=== PATIENT | female | born 1960 | race Caucasian/White ===

== ENCOUNTER 2017-04-30 15:18 | Emergency (ER) | payer OTHER, MEDICARE ==
[2017-04-30] MEDS ORDERED: HYDROCODONE/ACETAMINOPHEN 5-325 MG TABLET PO ONE (17:19)
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
[2017-04-30 18:22] VITALS: BP 146/82
--- NOTE | 2017-04-30 18:57 | EKG REPORT ---
SEVERITY:- NORMAL ECG - SINUS RHYTHM : Confirmed by: Rober Chawla MD 30-Apr-2017 18:56:47
== END 2017-04-30 18:25 | disposition home or self-care (01) ==
LOC: ER 15:18
DX: S20.212A Contusion of left front wall of thorax, initial encounter (principal); S20.02XA Contusion of left breast, initial encounter; R07.9 Chest pain, unspecified; M25.539 Pain in unspecified wrist; F17.200 Nicotine dependence, unspecified, uncomplicated; I10 Essential (primary) hypertension; V49.50XA Passenger injured in collision with unspecified motor vehicles in traffic accident, initial encounter
CPT/HCPCS: 71046; 93005; 93010; 99283

== ENCOUNTER 2018-01-08 08:10 | Day surgery (SDC) | payer MEDICARE, OTHER ==
--- NOTE | 2018-01-01 10:48 | RADIOLOGY REPORT (SQ) ---
EXAM DESCRIPTION: CHEST PA/LATERAL COMPLETED DATE/TIME: 01/01/2018 10:40 am REASON FOR STUDY: PRE-OP COMPARISON: 04/30/2017 EXAM PARAMETERS: NUMBER OF VIEWS: two views TECHNIQUE: Digital Frontal and Lateral radiographic views of the chest acquired. RADIATION DOSE: NA LIMITATIONS: none FINDINGS: LUNGS AND PLEURA: No opacities, masses or pneumothorax. No pleural effusion. MEDIASTINUM AND HILAR STRUCTURES: No masses or contour abnormalities. HEART AND VASCULAR STRUCTURES: Heart normal size. No evidence for failure. BONES: No acute findings. HARDWARE: None in the chest. OTHER: No other significant finding. IMPRESSION: NO SIGNIFICANT RADIOGRAPHIC FINDING IN THE CHEST. TECHNICAL DOCUMENTATION: JOB ID: [id number] [employer]- All Rights Reserved Reading location - IP/workstation name: [email or web address]
[2018-01-01 11:52] LABS: HEMOGLOBIN 15.2 g/dL (12.0-15.5); MEAN CORPUSCULAR HGB CONC 35.4 g/dL (32.0-36.0); MEAN CORPUSCULAR VOLUME 93 fl (80-97); PLATELET COUNT 218 10^3/uL (150-450); RED BLOOD COUNT 4.62 10^6/uL (3.72-5.28); WHITE BLOOD COUNT 10.3 10^3/uL (4.0-10.5)
[2018-01-01 12:02] LABS: APPEARANCE,URINE SLIGHTLY-CLOUDY; BILIRUBIN,URINE NEGATIVE (NEGATIVE); COLOR,URINE YELLOW; GLUCOSE, URINE NEGATIVE (NEGATIVE); KETONES,URINE NEGATIVE (NEGATIVE); LEUKOCYTE ESTERASE,URINE NEGATIVE (NEGATIVE); NITRITE,URINE NEGATIVE (NEGATIVE); PROTEIN,URINE NEGATIVE (NEGATIVE); URINE SPECIFIC GRAVITY 1.014; UROBILINOGEN,URINE NEGATIVE mg/dL (<2.0)
[2018-01-01 12:20] LABS: ANION GAP 8 (5-19); BLOOD UREA NITROGEN 9 mg/dL (7-20); CALCIUM 9.5 mg/dL (8.4-10.2); CARBON DIOXIDE 30 mmol/L (22-30); CHLORIDE 106 mmol/L (98-107); GLUCOSE 77 mg/dL (75-110); POTASSIUM 4.4 mmol/L (3.6-5.0)
--- NOTE | 2018-01-01 13:31 | EKG REPORT ---
SEVERITY:- NORMAL ECG - SINUS RHYTHM : Confirmed by: Rober Chawla MD 01-Jan-2018 13:31:00
[~2018-01-08 08:10] MED LIST: BUPIVACAINE HCL 0.5 % INJ/PF 30 ML SDV ONE; CLINDAMYCIN 600 MG/D5W RTU 600 MG/50 ML RTUPB IV ONE; CLINDAMYCIN 600 MG/D5W RTU 600 MG/50 ML RTUPB IV PRN; LACTATED RINGERS 1000 ML IV PRN; LIDOCAINE 0.5% INJ-PF (5 MG/ML) 50 ML SDV SUBCUT PRN; LIDOCAINE 1% INJ-PF (10 MG/ML) 30 ML SDV ONE
[2018-01-08] MEDS ORDERED: SUCCINYLCHOLINE CHLORIDE INJ 200 MG/10 ML VIAL ONE (08:51)
[2018-01-08] MEDS ORDERED: KETOROLAC TROMETHAMINE 60 MG/2 ML SDV ONE (08:56)
[2018-01-08] MEDS ORDERED: FENTANYL CITRATE INJ/PF 100 MCG/2 ML AMPUL ONE (08:57)
[2018-01-08] MEDS ORDERED: DEXAMETHASONE SOD PHOSPHATE INJ 4 MG/1 ML VIAL ONE (08:57)
[2018-01-08] MEDS ORDERED: ACETAMINOPHEN 1,000 MG/100 ML RTUPB IV ONE (08:57)
[2018-01-08] MEDS ORDERED: MIDAZOLAM 2 MG/2 ML INJ ONE ×2 (08:57→09:25)
[2018-01-08] MEDS ORDERED: ONDANSETRON HCL INJ/PF 4 MG/2 ML SDV ONE (08:57)
[2018-01-08] MEDS ORDERED: PROPOFOL INJ 200 MG/20 ML VIAL IV ONE (08:57)
[2018-01-08] MEDS ORDERED: PROMETHAZINE HCL INJ 25 MG/1 ML VIAL IV PRN ×2 (11:37)
[2018-01-08] MEDS ORDERED: ONDANSETRON HCL INJ/PF 4 MG/2 ML SDV IV PRN ×2 (11:37→13:53)
[2018-01-08] MEDS ORDERED: FENTANYL CITRATE INJ/PF 100 MCG/2 ML AMPUL IV PRN ×3 (11:37)
[2018-01-08] MEDS ORDERED: MEPERIDINE HCL/PF INJ 25 MG/1 ML DISP.SYRIN IV PRN (11:37)
[2018-01-08] MEDS ORDERED: MORPHINE SULFATE 10 MG/ML INJ IV PRN ×2 (11:37→13:53)
[2018-01-08] MEDS ORDERED: DIPHENHYDRAMINE HCL 50 MG/ML VIAL IV PRN (11:37)
[2018-01-08] MEDS ORDERED: OXYCODONE-ACETAMINOPHEN 5-325 MG TABLET PO PRN (13:53)
[2018-01-08] MEDS: FENTANYL CITRATE INJ/PF 100 MCG/2 ML AMPUL ONE ×2 (13:55→14:05)
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
--- NOTE | 2018-01-08 13:56 | Discharge Summary ---
Discharge Summary (SDC) - Discharge Final Diagnosis: Right wrist ulnar impingement Date of Surgery: 01/08/18 Discharge Date: 01/08/18 Condition: Good Treatment or Instructions: Schedule Follow Up w/ Dr. Ta Godoy @ [facility] for Surgery to be seen in 10-14 days or as scheduled [place]: [place]: [place]: Ice and elevate Keep splint clean/dry/intact. If your fingers become numb please unwrap the Toni wrap but leave the splint in place, if the sensation does not return within 30 minutes please return to the emergency department. May begin finger range of motion attempting to make full fist. Please be aware that many medications contain acetaminophen, do not exceed a total of 1000 mg of acetaminophen every 6 hours. If ibuprofen and acetaminophen are not sufficient for your pain you may take the Percocet/[place]. Please be aware that the Percocet/[place] does contain Tylenol. Stool softener of choice when on pain medication. Prescriptions: Ketorolac Tromethamine [Toradol 10 mg Tablet] 10 mg PO Q8HP PRN #12 tablet PRN Reason: Oxycodone HCl/Acetaminophen [Percocet 5-325 mg Tablet] 1 tab PO Q6 #25 tab Referrals: AGGIE VANCE MD [Primary Care Provider] - Discharge Diet: As Tolerated Respiratory Treatments at Home: Deep Breathing/Coughing Discharge Activity: No Lifting Over 10 Pounds, No Lifting/Push/Pulling Report the Following to Your Physician Immediately: Fever over 101 Degrees, Unusual Bleeding, Redness, Swelling, Warmth, Increased Soreness
--- NOTE | 2018-01-08 14:07 | RADIOLOGY REPORT (SQ) ---
EXAM DESCRIPTION: WRIST RIGHT 2 VIEWS COMPLETED DATE/TIME: 01/08/2018 1:31 pm REASON FOR STUDY: RT WRIST ARTHROSCPY, W/ DEBRIDEMENT, UNLAR SHORTENING OSTEOTOMY M25.831 OTHER SPE CIFIED JOINT DISORDERS, RIGHT WRIST Z79.01 ALF (CURRENT) USE OF ANTICOAGULANTS COMPARISON: No recent comparisons. Previous wrist films from 2016. FLUOROSCOPY TIME: Fluoro time 41 seconds. 8 images saved to PACS. TECHNIQUE: Intra-operative images acquired during surgical procedure to evaluate progress. NUMBER OF IMAGES: 8 LIMITATIONS: None. FINDINGS: Images of the right forearm are obtained and show instrumentation in place along the dista l radius and ulna. History of distal radial fracture. Reported ulnar osteotomy currently. Please c orrelate with operative note. IMPRESSION: IMAGE(S) OBTAINED DURING PROCEDURE. COMMENT: Quality ID [id number]: Final reports for procedures using fluoroscopy that document radiation exp osure indices, or exposure time and number of fluorographic images (if radiation exposure indices are not available) Please consult full operative report of the attending physician for description of the procedure. TECHNICAL DOCUMENTATION: JOB ID: [id number] [employer]- All Rights Reserved Reading location - IP/workstation name: [email or web address]
[2018-01-08] MEDS ORDERED: OXYCODONE-ACETAMINOPHEN 5-325 MG TABLET ONE (14:30)
[2018-01-08 15:43] VITALS: BP 152/90
== END 2018-01-08 15:40 | disposition home or self-care (01) ==
LOC: OROUT 08:10
PROVIDERS: ATTEND Orthopaedic Surgery
DX: M25.831 Other specified joint disorders, right wrist (principal); S63.591A Other specified sprain of right wrist, initial encounter; V89.2XXA Person injured in unspecified motor-vehicle accident, traffic, initial encounter; M19.031 Primary osteoarthritis, right wrist; F17.210 Nicotine dependence, cigarettes, uncomplicated; I10 Essential (primary) hypertension; Z79.899 Other long term (current) drug therapy; Z79.1 Long term (current) use of non-steroidal anti-inflammatories (NSAID); Z88.0 Allergy status to penicillin; Z88.2 Allergy status to sulfonamides; Z87.81 Personal history of (healed) traumatic fracture
CPT/HCPCS: 25390; 29846; 93005; 36415; 85027; 81025; 80048; 81001; 71046; 73100; 93010; C1713 ×3; C1769; J2250; J3490; J1100; J1885; J3010; A9270 ×2; J0330; J2405; J2704; J0131; 01830

== ENCOUNTER → 2018-05-29 | Outpatient (CLI) | payer MEDICARE ==
--- NOTE | 2018-05-29 11:44 | WOMENS IMAGING REPORT ---
EXAM DESCRIPTION: BONE DENSITY HIP/SPINE COMPLETED DATE/TIME: 05/29/2018 11:24 am REASON FOR STUDY: Z78.0 ASYMPTOMATIC MENOPAUSAL STATE Z78.0 ASYMPTOMATIC MENOPAUSAL STATE COMPARISON: None. TECHNIQUE: Dual-Energy X-ray Absorptiometry (DEXA) of the AP Spine and Hip. LIMITATIONS: None. FINDINGS: LUMBAR SPINE: The bone mineral density (BMD) measured from L1-L4 in the AP projection correlates with a T-score of -2.3, which is osteopenic as defined by the World Health Organization. HIP: The bone mineral density (BMD) measured in the left femoral neck at the hip correlates with a T-score of -2.1, which is osteopenic as defined by the World Health Organization. IMPRESSION: 1. LUMBAR SPINE: Osteopenic 2. HIP: Osteopenic COMMENT: The World Health Organization defines low BMD as follows: T-score: Normal: Greater than -1.0 Osteopenia: Between -1.0 and -2.5 Osteoporosis: Less than -2.5 without fractures Established osteoporosis: Less than -2.5 with fractures In general, you may wish to consider: Diagnosis Treatment Follow-up DEXA Normal BMD Prevention 2-3 years Osteopenia Prevention/Therapy 1-2 years Osteoporosis Therapy Yearly TECHNICAL DOCUMENTATION: JOB ID: [id number] [employer]- All Rights Reserved Reading location - IP/workstation name: [email or web address]
== END ==
LOC: WI 10:26
PROVIDERS: ATTEND Family Medicine
DX: M85.88 Other specified disorders of bone density and structure, other site (principal); Z78.0 Asymptomatic menopausal state
CPT/HCPCS: 77080

== ENCOUNTER → 2018-07-04 | Outpatient (CLI) | payer MEDICARE ==
--- NOTE | 2018-07-04 15:31 | WOMENS IMAGING REPORT ---
EXAM DESCRIPTION: BILAT SCREENING MAMMO W/CAD COMPLETED DATE/TIME: 07/04/2018 11:42 am REASON FOR STUDY: Z12.31 ROUTINE BILATERAL SCREENING F17.200 NICOTINE DEPENDENCE, UNSPECIFIED, UNCO MPLICATED Z12.31 ENCNTR SCREEN MAMMOGRAM FOR MALIGNANT NEOPLASM OF MEENU COMPARISON: 2013 EXAM PARAMETERS: Standard craniocaudal and mediolateral oblique views of each breast recorded using digital acquisition. Read with the assistance of CAD. .[facility] - [employer] Engine Room Operator Version 9.2 LIMITATIONS: None. FINDINGS: No suspicious masses, suspicious calcifications or architectural distortion. No areas of s uspicion. IMPRESSION: ASSESSMENT: Negative MAMMOGRAM. BIRADS 1 BREAST DENSITY: d. The breasts are extremely dense, which lowers the sensitivity of mammography. BIRAD: 1 NEGATIVE RECOMMENDATION: ROUTINE SCREENING Please consider bilateral screening tomosynthesis in June 2019 given extremely dense fibroglandular ti ssue bilaterally COMMENT: The patient has been notified of the results by letter per MQSA requirements. Additional no tification policies are in place for contacting patient with suspicious or incomplete findings. Quality ID #[id number]: The [employer] recommends an annual screening mammogram for women aged 40 years or over. This facility utilizes a reminder system to ensure that all patients receive reminder letters, and/or direct phone calls for appointments. This includes reminders for routine scr eening mammograms, diagnostic mammograms, or other Breast Imaging Interventions when appropriate. Th is patient will be placed in the appropriate reminder system. TECHNICAL DOCUMENTATION: FINDING NUMBER: (1) ASSESSMENT: (1) JOB ID: [id number] [employer]- All Rights Reserved Reading location - IP/workstation name: [email or web address]
== END ==
LOC: RAD 08:54
PROVIDERS: ATTEND Family Medicine
DX: Z12.31 Encounter for screening mammogram for malignant neoplasm of breast (principal); Z87.891 Personal history of nicotine dependence
CPT/HCPCS: 77067

== ENCOUNTER 2018-07-19 09:27 | Day surgery (SDC) | payer MEDICARE ==
[~2018-07-19 09:27] MED LIST changes: -BUPIVACAINE HCL 0.5 % INJ/PF 30 ML SDV ONE; -CLINDAMYCIN 600 MG/D5W RTU 600 MG/50 ML RTUPB IV ONE; -CLINDAMYCIN 600 MG/D5W RTU 600 MG/50 ML RTUPB IV PRN; -LACTATED RINGERS 1000 ML IV PRN; -LIDOCAINE 0.5% INJ-PF (5 MG/ML) 50 ML SDV SUBCUT PRN; -LIDOCAINE 1% INJ-PF (10 MG/ML) 30 ML SDV ONE; +PROPOFOL INJ 200 MG/20 ML VIAL IV ONE
[2018-07-19 11:07] VITALS: BP 110/60
--- NOTE | 2018-07-19 11:20 | Operative Report ---
Operative Report DATE OF SURGERY: 07/19/18 Operative Report: The risks, benefits and alternatives of the procedure including the risk of bleeding, perforation requiring surgery have been explained to the patient in detail and informed consent has been obtained. Patient is taken back to the endoscopy suite and placed in the left, lateral decubital position. Timeout was called. Propofol medication is administered. Rectal examination is done which did not reveal any masses, tears or fissures. An Olympus videoscope was introduced into the patient's rectum. The scope was then carefully advanced all the way to the cecum. The cecum was identified by the usual anatomical landmarks including the ileocecal valve as well as the appendiceal office. Photodocumentation is obtained. The scope was then sequentially pulled back via the various segments of the colon including the ascending colon, hepatic flexure, transverse colon, splenic flexure, descending colon and finally into the rectosigmoid portions of the colon. Retroflexion maneuvers performed. PREOPERATIVE DIAGNOSIS: Colorectal cancer screening. POSTOPERATIVE DIAGNOSIS: Normal screening colonoscopy OPERATION: Diagnostic colonoscopy SURGEON: RAAD BOLES ANESTHESIA: LMAC TISSUE REMOVED OR ALTERED: None. COMPLICATIONS: None. ESTIMATED BLOOD LOSS: As noted above. INTRAOPERATIVE FINDINGS: As noted above. PROCEDURE: Patient tolerated the procedure well. No immediate postprocedure complications are noted. Patient is discharged in good condition. Discharge date 07/19/2018. Discharge diet: Regular. Discharge activity: Regular. 2 to 3-week follow-up to discuss findings. Patient is instructed to call the office or proceed to the emergency room should there be any further problems or questions. 10-year surveillance colonoscopy.
== END 2018-07-19 11:01 | disposition home or self-care (01) ==
LOC: END 09:27
PROVIDERS: ATTEND Internal Medicine Gastroenterology
DX: Z12.11 Encounter for screening for malignant neoplasm of colon (principal); I10 Essential (primary) hypertension; F17.210 Nicotine dependence, cigarettes, uncomplicated; E78.5 Hyperlipidemia, unspecified; Z79.899 Other long term (current) drug therapy; Z88.0 Allergy status to penicillin; Z88.2 Allergy status to sulfonamides
CPT/HCPCS: 00812; G0105; J2704; 45378; 812

== ENCOUNTER 2018-08-20 08:22 | Day surgery (SDC) | payer OTHER, MEDICARE ==
[2018-08-14 11:41] LABS: APPEARANCE,URINE CLEAR; BILIRUBIN,URINE NEGATIVE (NEGATIVE); COLOR,URINE STRAW; GLUCOSE, URINE NEGATIVE (NEGATIVE); KETONES,URINE NEGATIVE (NEGATIVE); LEUKOCYTE ESTERASE,URINE NEGATIVE (NEGATIVE); NITRITE,URINE NEGATIVE (NEGATIVE); PROTEIN,URINE NEGATIVE (NEGATIVE); URINE SPECIFIC GRAVITY 1.004; UROBILINOGEN,URINE NEGATIVE mg/dL (<2.0)
[2018-08-14 12:29] LABS: INTERNATIONAL RATION (INR) 0.93; PROTHROMBIN TIME 12.5 SEC (11.4-15.4)
[2018-08-14 12:30] LABS: ABSOLUTE BASOPHILS # (AUTO) 0.1 10^3/uL (0.0-0.2); ABSOLUTE EOSINOPHILS # (AUTO) 0.4 10^3/uL (0.0-0.6); ABSOLUTE LYMPHOCYTES (AUTO) 2.3 10^3/uL (0.5-4.7); ABSOLUTE MONOCYTES (AUTO) 0.9 10^3/uL (0.1-1.4); ABSOLUTE NEUT (AUTO) 7.5 10^3/uL (1.7-8.2); BASOPHILS % (AUTO) 0.5 % (0-2); EOSINOPHILS % (AUTO) 3.5 % (0-6); HEMATOCRIT 42.9 % (36.0-47.0); HEMOGLOBIN 14.6 g/dL (12.0-15.5); MEAN CORPUSCULAR HEMOGLOBIN 30.2 pg (27.0-33.4); MEAN CORPUSCULAR HGB CONC 34.1 g/dL (32.0-36.0); MEAN CORPUSCULAR VOLUME 89 fl (80-97); PARTIAL THROMBOPLASTIN TIME 28.2 SEC (23.5-35.8); PLATELET COUNT 238 10^3/uL (150-450); RED BLOOD COUNT 4.83 10^6/uL (3.72-5.28); TOTAL CELLS COUNTED % (AUTO) 100 %; WHITE BLOOD COUNT 11.2 10^3/uL (4.0-10.5)
--- NOTE | 2018-08-14 12:50 | RADIOLOGY REPORT (SQ) ---
EXAM DESCRIPTION: CHEST PA/LATERAL COMPLETED DATE/TIME: 08/14/2018 11:46 am REASON FOR STUDY: PRE-OP COMPARISON: 01/01/2018 EXAM PARAMETERS: NUMBER OF VIEWS: two views TECHNIQUE: Digital Frontal and Lateral radiographic views of the chest acquired. RADIATION DOSE: NA LIMITATIONS: none FINDINGS: LUNGS AND PLEURA: No opacities, masses or pneumothorax. No pleural effusion. MEDIASTINUM AND HILAR STRUCTURES: No masses or contour abnormalities. HEART AND VASCULAR STRUCTURES: Heart normal size. No evidence for failure. BONES: No acute findings. HARDWARE: Partially evaluated cervical fusion hardware. Prior cholecystectomy. OTHER: Scattered gas fluid levels throughout the visualized abdomen. No visualized dilated loops. IMPRESSION: No evidence of acute intrathoracic process. TECHNICAL DOCUMENTATION: JOB ID: [id number] [employer]- All Rights Reserved Reading location - IP/workstation name: [email or web address]
[2018-08-14 12:53] LABS: ANION GAP 9 (5-19); BLOOD UREA NITROGEN 9 mg/dL (7-20); CALCIUM 9.7 mg/dL (8.4-10.2); CARBON DIOXIDE 29 mmol/L (22-30); CHLORIDE 100 mmol/L (98-107); GLUCOSE 70 mg/dL (75-110); SODIUM 137.8 mmol/L (137-145)
[2018-08-14 13:07] LABS: ERYTHROCYTE SEDIMENTATION RATE 9 mm/hr (0-30)
--- NOTE | 2018-08-14 23:59 | EKG REPORT ---
SEVERITY:- NORMAL ECG - SINUS RHYTHM : Confirmed by: Lory Flanagan MD 14-Aug-2018 23:58:20
[2018-08-17 17:05] LABS: COTININE 156.1 ng/mL (.); NICOTINE 13.4 ng/mL (.)
[~2018-08-20 08:22] MED LIST changes: +CLINDAMYCIN 600 MG/D5W RTU 600 MG/50 ML RTUPB IV PRN; +DEXAMETHASONE SOD PHOSPHATE INJ 4 MG/1 ML VIAL ONE; +FENTANYL CITRATE INJ/PF 100 MCG/2 ML AMPUL ONE; +LACTATED RINGERS 1000 ML IV PRN; +LIDOCAINE 0.5% INJ-PF (5 MG/ML) 50 ML SDV SUBCUT PRN; +MIDAZOLAM 2 MG/2 ML INJ ONE; +ONDANSETRON HCL INJ/PF 4 MG/2 ML SDV ONE
[2018-08-20] MEDS ORDERED: CLINDAMYCIN 600 MG/D5W RTU 600 MG/50 ML RTUPB IV ONE (08:29)
[2018-08-20] MEDS ORDERED: BUPIVACAINE HCL 0.5 % INJ/PF 30 ML SDV ONE (08:42)
[2018-08-20] MEDS ORDERED: ALBUTEROL SULFATE 0.083% NEB 2.5 MG/3 ML AMPUL NEB ONE (09:00)
[2018-08-20] MEDS ORDERED: ONDANSETRON HCL INJ/PF 4 MG/2 ML SDV IV PRN (10:17)
[2018-08-20] MEDS ORDERED: FENTANYL CITRATE INJ/PF 100 MCG/2 ML AMPUL IV PRN ×3 (10:17)
[2018-08-20] MEDS ORDERED: PROMETHAZINE HCL INJ 25 MG/1 ML VIAL IV PRN ×2 (10:17)
[2018-08-20] MEDS ORDERED: MEPERIDINE HCL/PF INJ 25 MG/1 ML DISP.SYRIN IV PRN (10:17)
[2018-08-20] MEDS ORDERED: DIPHENHYDRAMINE HCL 50 MG/ML VIAL IV PRN (10:17)
[2018-08-20] MEDS ORDERED: MORPHINE SULFATE 10 MG/ML INJ IV PRN ×2 (10:17→12:25)
[2018-08-20] MEDS ORDERED: OXYCODONE-ACETAMINOPHEN 5-325 MG TABLET PO PRN (12:25)
--- NOTE | 2018-08-20 12:26 | Discharge Summary ---
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 Ta Godoy @ [facility] for Surgery to be seen in 10-14 days or as scheduled [place]: [place]: [place]: Ice and elevate Keep splint clean/dry/intact, do not remove. If your fingers become numb please unwrap the Toni wrap but leave the splint in place, if the sensation does not return within 30 minutes please return to the emergency department. May begin finger range of motion attempting to make full fist. No smoking or nicotine ORAL NARCOTIC MEDICATION: You have been given a prescription for pain control. This medication is a narcotic. It's best taken with food, as nausea can result if taken on an empty stomach. Don't operate machinery or drive within six hours of taking this medication. Do not combine this medicine with alcohol, or with any medication which can cause sedation (such as cold tablets or sleeping pills) unless you get permission from the physician. Narcotics tend to cause constipation. If possible, drink plenty of fluids and eat a diet high in fiber and fruits. Please be aware that prescription narcotics also have the potential for abuse. People become addicted to these medications because of the general sense of wellbeing that they induce. This feeling along with a significant reduction in tension, anxiety, and aggression provides a stimulating seductive quality to these drugs. Once your pain is under control, we encourage you to discard your unused narcotics. Prescriptions: Oxycodone HCl/Acetaminophen [Percocet 5-325 mg Tablet] 1 tab PO Q6 PRN #25 tab PRN Reason: Referrals: JUDY CINTRON MD [Primary Care Provider] - Respiratory Treatments at Home: Deep Breathing/Coughing Discharge Activity: No Lifting Over 10 Pounds, No Lifting/Push/Pulling Report the Following to Your Physician Immediately: Fever over 101 Degrees, Unusual Bleeding, Redness, Swelling, Warmth, Increased Soreness
--- NOTE | 2018-08-20 12:31 | Operative Report ---
Operative Report DATE OF SURGERY: 08/20/18 PREOPERATIVE DIAGNOSIS: Right wrist ulnar shortening nonunion POSTOPERATIVE DIAGNOSIS: Same OPERATION: Takedown nonunion right ulnar shaft with placement of olecranon autograft revision ulnar shortening SURGEON: JONATHAN HEDRICK ANESTHESIA: GA COMPLICATIONS: None ESTIMATED BLOOD LOSS: Minimal PROCEDURE: Indication for above procedure: 57-year-old female who underwent ulnar shortening osteotomy patient did well postoperatively however radiographically continue to demonstrate evidence of persistent nonunion of the osteotomy site. After further discussion was found patient continued NSAIDs and smoking which increased her risk of nonunion. At that point once patient adequately quit smoking and metabolic work-up was performed decision was made to proceed with revision ulnar shortening osteotomy with takedown of nonunion. Risk and benefits of the surgical procedure were explained to the patient patient verbalized understanding consented for surgical procedure. Procedure In Detail: Patient was seen and evaluated in the preoperative holding area. The RIGHT upper extremity was initialized and marked. Patient received 2g of Ancef IV for bacterial prophylaxis. Patient was taken back to the operative room where transferred to the operative table and placed under general anesthesia. Once they were adequately anesthetized a nonsterile tourniquet was placed on the upper extremity. A surgical team debriefing was performed ensuring all instrumentation was available, the surgical procedure was discussed with possible concerns reviewed. The upper extremity was prepped with chlorhexidine and alcohol and draped in a sterile fashion. A timeout was done identifying correct patient, procedure and extremity everyone in attendance agree with this and verbalized no concerns. The extremity was exsanguinated the tourniquet was inflated to 250 mmHg. Previous skin incision was utilized and extended proximally and distally. Blunt dissection was performed. Dorsal ulnar sensory nerve was identified distally. Interval between the FCU and ECU was utilized. Previous plate was identified there was significant instability at the previous osteotomy site. The plate was successfully removed. Any nonviable tissue was excised including bone at the osteotomy site and proximally where the screws were cutting out until normal- appearing bone was identified. Once adequately debrided the canal was debrided with a curette proximally and distally. Given the amount of defect decision was made to proceed with harvesting autograft. Longitudinal skin incision was made over the olecranon. Under C-arm fluoroscopy the appropriate location of harvest was confirmed. The bone graft harvester was then placed and cancellus bone obtained. At the completion of the case this area was copiously irrigated with normal saline and filled with Vitoss synthetic bone graft. Skin was closed with subcuticular 4-0 Monocryl reinforced with Dermabond and Steri-Strips. At the nonunion site the Acumed forearm plate was fixated as distal as possible given the amount of bone loss and significant loosening evident. Bone was placed just ulnar to the ECU tendon and groove distally. Fixation was first obtained with bicortical fixation for an additional locking screw. The plate was then secured down to bone proximally and a locking plate was placed proximally and distally and reduction clamp from the Acumed osteotomy tray to compress the osteotomy. C-arm fluoroscopy was obtained there was significant shortening of the ulna but given patient's high risk of nonunion did not feel leaving a large gap filled with autograft would optimize patient's osteotomy healing and thus fixation was completed with 2 additional bicortical screws proximally providing interfragmentary compression 2 additional screws were placed proximally including a locking screw and additional bicortical screw. Fixation distally was secured in total with 2 locking screws and a bicortical screw as noted above. At completion patient had full pronation and supination there was compression of the osteotomy site under direct visualization. Wound was copiously irrigated with normal saline. The osteotomy site was then packed with autogenous olecranon autograft and additional detox was placed into the osteotomy site and screw holes distally. C-arm fluoroscopy was then obtained confirming appropriate reduction of the osteotomy with ulnar shortening as noted above. Deep soft tissues were closed with interrupted 3-0 Vicryl suture. Subcutaneous tissues were closed with interrupted 4-0 Monocryl suture. Skin was closed in running subcuticular 4-0 Monocryl reinforced with Dermabond and Steri-Strips. Patient was placed in a sugar tong splint with slight supination. Sponge counts, instrument counts, needle counts were correct. Patient was then awoken from anesthesia. Transferred from the operating room table to the operating room stretcher. There was no intraoperative complications patient tolerated procedure well stable to PACU. Postop plan: Patient follow-up the office in 2 weeks at which point we will proceed with placement of long-arm cast until radiographic union is noted. Patient will continue bone stimulator and calcium supplementation.
[2018-08-20] MEDS ORDERED: KETOROLAC TROMETHAMINE INJ/PF 30 MG/1 ML SDV ONE (12:41)
[2018-08-20] MEDS ORDERED: LIDOCAINE 2% INJ (20 MG/ML) 20 ML MDV ONE (12:41)
[2018-08-20] MEDS ORDERED: LIDOCAINE 2%/EPINEPHRINE INJ 20 ML VIAL ONE (12:41)
[2018-08-20] MEDS ORDERED: ROPIVACAINE HCL 0.5% INJ/PF (5 MG/1 ML) 30 ML SDV ONE (12:42)
[2018-08-20] MEDS ORDERED: ACETAMINOPHEN 1,000 MG/100 ML RTUPB IV ONE (12:42)
--- NOTE | 2018-08-20 14:25 | RADIOLOGY REPORT (SQ) ---
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 FLUOROSCOPY TIME: 46 seconds 15 Images saved to PACS TECHNIQUE: Intra-operative images acquired during surgical procedure to evaluate progress. NUMBER OF IMAGES: 15 LIMITATIONS: None. FINDINGS: Intraoperative fluoroscopic images obtained to evaluate surgical progress. Please see ope rative report for detailed IMPRESSION: IMAGE(S) OBTAINED DURING PROCEDURE. COMMENT: Quality ID 145: Final reports for procedures using fluoroscopy that document radiation exp osure indices, or exposure time and number of fluorographic images (if radiation exposure indices are not available) Please consult full operative report of the attending physician for description of the procedure. TECHNICAL DOCUMENTATION: JOB ID: [id number] [employer]- All Rights Reserved Reading location - IP/workstation name: [email or web address]
--- NOTE | 2018-08-20 14:25 | RADIOLOGY REPORT (SQ) ---
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 FLUOROSCOPY TIME: 46 seconds 15 Images saved to PACS TECHNIQUE: Intra-operative images acquired during surgical procedure to evaluate progress. NUMBER OF IMAGES: 15 LIMITATIONS: None. FINDINGS: Intraoperative fluoroscopic images obtained to evaluate surgical progress. Please see ope rative report for detailed IMPRESSION: IMAGE(S) OBTAINED DURING PROCEDURE. COMMENT: Quality ID 145: Final reports for procedures using fluoroscopy that document radiation exp osure indices, or exposure time and number of fluorographic images (if radiation exposure indices are not available) Please consult full operative report of the attending physician for description of the procedure. TECHNICAL DOCUMENTATION: JOB ID: [id number] [employer]- All Rights Reserved Reading location - IP/workstation name: [email or web address]
[2018-08-20 15:11] VITALS: BP 119/74
[2018-08-22 13:41] LABS: COTININE 307.9 ng/mL (.); NICOTINE 16.4 ng/mL (.)
== END 2018-08-20 15:05 | disposition home or self-care (01) ==
LOC: OROUT 08:22
PROVIDERS: ATTEND Orthopaedic Surgery
DX: S52.201K Unspecified fracture of shaft of right ulna, subsequent encounter for closed fracture with nonunion (principal); W19.XXXD Unspecified fall, subsequent encounter; M25.831 Other specified joint disorders, right wrist; F17.210 Nicotine dependence, cigarettes, uncomplicated; I10 Essential (primary) hypertension
CPT/HCPCS: 93005; 36415 ×2; 87070; 87205; 85025; 85652; 85610; 85730; 81025; 87075; 86140; 80048; 81001; 71046; 73090; 93010; 25405; G0480 ×2; J2795; J2250; J3490 ×3; J1100; J3010; J1885; J2405; J2704; J0131; 01830; 80323

== ENCOUNTER 2019-03-02 08:08 | Emergency (ER) | payer MEDICARE, OTHER ==
[2019-03-02 08:28] LABS: ABSOLUTE BASOPHILS # (AUTO) 0.1 10^3/uL (0.0-0.2); ABSOLUTE EOSINOPHILS # (AUTO) 0.3 10^3/uL (0.0-0.6); ABSOLUTE LYMPHOCYTES (AUTO) 2.1 10^3/uL (0.5-4.7); ABSOLUTE MONOCYTES (AUTO) 0.8 10^3/uL (0.1-1.4); ABSOLUTE NEUT (AUTO) 7.7 10^3/uL (1.7-8.2); BASOPHILS % (AUTO) 0.8 % (0-2); EOSINOPHILS % (AUTO) 2.5 % (0-6); HEMATOCRIT 42.3 % (36.0-47.0); HEMOGLOBIN 14.9 g/dL (12.0-15.5); LYMPHOCYTES % (AUTO) 19.3 % (13-45); MEAN CORPUSCULAR HEMOGLOBIN 31.5 pg (27.0-33.4); MEAN CORPUSCULAR HGB CONC 35.3 g/dL (32.0-36.0); MEAN CORPUSCULAR VOLUME 89 fl (80-97); MONOCYTES % (AUTO) 7.5 % (3-13); PLATELET COUNT 250 10^3/uL (150-450); RED BLOOD COUNT 4.74 10^6/uL (3.72-5.28); RED CELL DISTRIBUTION WIDTH 13.8 % (11.5-14.0); SEGMENTED NEUTROPHILS % (AUTO) 69.9 % (42-78); TOTAL CELLS COUNTED % (AUTO) 100 %
[2019-03-02] MEDS ORDERED: MORPHINE SULFATE 10 MG/ML INJ IV ONE ×2 (08:41→11:21)
[2019-03-02] MEDS ORDERED: MIDAZOLAM 2 MG/2 ML INJ IV ONE (08:42)
--- NOTE | 2019-03-02 08:45 | ER Document Report ---
ED Extremity Problem, Lower - General Chief Complaint: Ankle Injury Stated Complaint: FALL/ANKLE PAIN Time Seen by Provider: 03/02/19 08:38 Primary Care Provider: JUDY CINTRON MD [Primary Care Provider] - Follow up as needed DWAYNE DALTON MD [ACTIVE PROVISIONAL STAFF] - Follow up as needed Notes: 58-year-old woman who presents with an injury to her left ankle with a injury after syncopal episode. Patient denies chest pain, shortness of breath for residual symptoms after a very brief moment of passing out. She has obvious deformity to the left ankle, no other injury noted. She notes a history of osteoporosis and osteopenia. TRAVEL OUTSIDE OF THE [place] IN LAST 30 DAYS: No - Related Data Allergies/Adverse Reactions: Penicillins Allergy (Intermediate, Verified 03/02/19 08:17) rash, fever Sulfa (Sulfonamide Antibiotics) Allergy (Intermediate, Verified 03/02/19 08:17) rash, fever Past Medical History - Social History Smoking Status: Unknown if Ever Smoked Family History: Reviewed & Not Pertinent Patient has suicidal ideation: No Patient has homicidal ideation: No - Past Medical History Cardiac Medical History: Reports: Hx Hypercholesterolemia, Hx Hypertension Denies: Hx Coronary Artery Disease, Hx Heart Attack Pulmonary Medical History: Denies: Hx Asthma, Hx Bronchitis, Hx COPD, Hx Pneumonia Neurological Medical History: Denies: Hx Cerebrovascular Accident, Hx Seizures Renal/ Medical History: Denies: Hx Peritoneal Dialysis GI Medical History: Denies: Hx Hepatitis, Hx Hiatal Hernia, Hx Ulcer Musculoskeletal Medical History: Reports Hx Arthritis - back, joints Psychiatric Medical History: Reports: Hx Depression - Anxiety Infectious Medical History: Denies: Hx Hepatitis Past Surgical History: Reports: Hx Cholecystectomy, Hx Orthopedic Surgery - neck lower back., Hx Tonsillectomy. Denies: Hx Hysterectomy, Hx Mastectomy, Hx Open Heart Surgery, Hx Pacemaker - Immunizations Hx Diphtheria, Pertussis, Tetanus Vaccination: Yes Review of Systems - Review of Systems Notes: Constitutional: Negative for fever. HENT: Negative for sore throat. Eyes: Negative for visual changes. Cardiovascular: Negative for chest pain. Respiratory: Negative for shortness of breath. Gastrointestinal: Negative for abdominal pain, vomiting or diarrhea. Genitourinary: Negative for dysuria. Musculoskeletal: + Left ankle injury Skin: Negative for rash. Neurological: + Syncope 10 point ROS negative except as marked above and in HPI. Physical Exam - Vital signs Vitals: Resp BP Pulse Ox 14 123/91 H 100 03/02/19 08:11 03/02/19 08:11 03/02/19 08:11 - Notes Notes: PHYSICAL EXAMINATION: Physical Exam: General: Well-nourished well-developed 58-year-old woman in moderate distress secondary to left ankle pain HEENT: NC/AT, pupils equal round and reactive to light, MM moist,nares clear, Neck: supple, no adenopathy, no masses. Lungs: clear, no wheezing, no rales no rhonchi CVS: Regular rate and rhythm no murmur gallop or rub Abdomen: Soft active nontender, no masses, no hepatosplenomegaly Ext: Left ankle with a medially displaced foot and obvious fracture dislocation, neurologically intact, good pulses. Neuro: Alert and responsive, moving all 4 extremities on command, cranial nerves intact. Skin: Intact no open lesions, no rash PSYCH: Normal mood, normal affect. Course - Re-evaluation Re-evalutation: 03/02/19 14:09 At 10:00 AM, the orthopedist Dr. Dalton was contacted, states that he could follow-up with the patient in his office, she is to call on Sunday. 10:45 AM: The left ankle was reduced and post reduction x-rays were performed showing a good alignment. Patient is post sedation and stable. - Vital Signs Vital signs: Temp Pulse Resp BP Pulse Ox 98.0 F 74 18 104/64 100 03/02/19 08:29 03/02/19 11:31 03/02/19 11:38 03/02/19 11:38 03/02/19 11:38 - Laboratory Result Diagrams: 03/02/19 08:15 03/02/19 08:15 Laboratory results interpreted by me: 03/02/19 03/02/19 08:15 08:15 WBC 11.0 H Est GFR ( Amer) 55 L Est GFR (MDRD) Non-Af 45 L Glucose 140 H - Diagnostic Test Radiology reviewed: Image reviewed, Reports reviewed - EKG Interpretation by Me EKG shows normal: Sinus rhythm - Rate is 63, borderline T wave abnormality otherwise no acute ST or T wave abnormality. Procedures - Conscious Sedation Conscious sedation Time started: 10:45 Time completed: 11:15 Consent obtained: Yes Indication: Reduction of a left ankle closed bimalleolar fracture with dislocation. Prior complications: Procedural sedation - Versed 5 mg, fentanyl 50 mcg ASA Classification: Choose one classification Normal healthy pt.: P1. - ASA Classification Airway Evaluation: Normal anatomy Mallampati Classification: Class 1 Used during procedure: Suction available, IV access obtained, Pulse ox on pt., satellite project site monitor on pt. Medications administered: Versed, Fentanyl Reversal agents: None I personally performed/intraservice time: Sedation, 30 min or less Complications: No - Joint Reduction/Fracture Care Left Ankle Time completed: 10:55 Consent obtained: Yes Conscious sedation: Yes Pre-procedure NV exam: Yes Fracture: Closed Post-procedure NV exam: Yes Post-reduction x-ray: Joint reduced Reduction attempts: 1 Complications: No Notes: 03/02/19 14:13 The left ankle fracture dislocation was reduced with single effort and posterior splint along with a sugar tong splint applied to the extremity. Discharge - Discharge Clinical Impression: Closed bimalleolar fracture of left ankle Qualifiers: Encounter type: initial encounter Qualified Code(s): S82.842A - Displaced bimalleolar fracture of left lower leg, initial encounter for closed fracture Closed dislocation of left ankle Qualifiers: Encounter type: initial encounter Qualified Code(s): S93.05XA - Dislocation of left ankle joint, initial encounter Condition: Good Disposition: HOME, SELF-CARE Instructions: Use of Crutches ([facility]), Fractured Ankle (Bimalleolar) ([facility]), Ice & Elevation (REPLACED BY [facility]) Additional Instructions: You were diagnosed with a fracture dislocation of the left ankle in the emergency department today. Please elevate the ankle use ice to reduce swelling and use the pain medications as prescribed. Follow-up with the orthopedist, Dr. Dalton, call the office in the morning. And he will arrange a follow-up and plan for your surgery. Prescriptions: Hydrocodone/Acetaminophen [[place] 5-325 mg Tablet] 1 tab PO Q6 PRN #10 tablet PRN Reason: Referrals: JUDY CINTRON MD [Primary Care Provider] - Follow up as needed DWAYNE DALTON MD [ACTIVE PROVISIONAL STAFF] - Follow up as needed
[2019-03-02 08:47] LABS: ALBUMIN 4.5 g/dL (3.5-5.0); ALKALINE PHOSPHATASE 89 U/L (38-126); ANION GAP 9 (5-19); ASPARTATE AMINO TRANSFERASE 21 U/L (14-36); BILIRUBIN,DIRECT 0.3 mg/dL (0.0-0.4); BILIRUBIN,TOTAL 0.3 mg/dL (0.2-1.3); BLOOD UREA NITROGEN 15 mg/dL (7-20); CALCIUM 9.9 mg/dL (8.4-10.2); CARBON DIOXIDE 27 mmol/L (22-30); CHLORIDE 106 mmol/L (98-107); CREATINE KINASE 34 U/L (30-135); GLUCOSE 140 mg/dL (75-110); POTASSIUM 4.2 mmol/L (3.6-5.0); TOTAL PROTEIN 7.1 g/dL (6.3-8.2)
[2019-03-02] MEDS ORDERED: ONDANSETRON HCL INJ/PF 4 MG/2 ML SDV IV ONE (08:51)
[2019-03-02 08:58] LABS: CREATINE KINASE MB 0.39 ng/mL (<4.55)
[2019-03-02 08:59] LABS: TROPONIN I < 0.012 ng/mL
--- NOTE | 2019-03-02 09:47 | RADIOLOGY REPORT (SQ) ---
EXAM DESCRIPTION: ANKLE LEFT COMPLETE COMPLETED DATE/TIME: 03/02/2019 8:39 am REASON FOR STUDY: bone tenderness/ deformity/ fall COMPARISON: None. NUMBER OF VIEWS: Two views TECHNIQUE: AP and lateral radiographic images acquired of the left ankle. LIMITATIONS: None. FINDINGS: MINERALIZATION: Normal. BONES: Acute trimalleolar fracture with lateral dislocation of the talus with respect to the distal t ibia JOINTS: Ankle joint effusion SOFT TISSUES: Diffuse soft tissue swelling OTHER: No other significant finding. IMPRESSION: Acute trimalleolar fracture left ankle with lateral dislocation of the talus with respec t to the tibia TECHNICAL DOCUMENTATION: JOB ID: [id number] [employer]- All Rights Reserved Reading location - IP/workstation name: [email or web address]
[2019-03-02] MEDS: FENTANYL CITRATE INJ/PF 100 MCG/2 ML AMPUL IV PRN ×2 (10:39→13:26)
[2019-03-02] MEDS ORDERED: NORMAL SALINE 1000 ML 1,000 ML IV ONE (11:20)
--- NOTE | 2019-03-02 11:50 | RADIOLOGY REPORT (SQ) ---
EXAM DESCRIPTION: ANKLE LEFT COMPLETE COMPLETED DATE/TIME: 03/02/2019 11:08 am REASON FOR STUDY: Post reduction COMPARISON: Two-view ankle earlier today NUMBER OF VIEWS: Three views. TECHNIQUE: AP, lateral, and oblique radiographic images acquired of the left ankle. LIMITATIONS: Artifact from fiberglass splint FINDINGS: MINERALIZATION: Normal. BONES AND JOINT: Post closed reduction of a trimalleolar fracture. There is still very mild lateral subluxation of the talus with respect to the tibia and filled ankle mortise. Mild lateral displaceme nt of the distal fibular fragment. SOFT TISSUES: No soft tissue swelling. No foreign body. OTHER: No other significant finding. IMPRESSION: POST CLOSED REDUCTION LEFT TRIMALLEOLAR FRACTURE. ANKLE IN A FIBERGLASS SPLINT PERSISTENT MILD LATERAL SUBLUXATION OF THE TALUS WITH RESPECT TO THE DISTAL TIBIA. PERSISTENT MILD L ATERAL DISPLACEMENT OF THE DISTAL FIBULA FRAGMENT TECHNICAL DOCUMENTATION: JOB ID: [id number] [employer]- All Rights Reserved Reading location - IP/workstation name: [email or web address]
[2019-03-02 14:31] VITALS: BP 101/59
--- NOTE | 2019-03-02 15:58 | EKG REPORT ---
SEVERITY:- BORDERLINE ECG - SINUS RHYTHM BORDERLINE T ABNORMALITIES, ANT-LAT LEADS : Confirmed by: Rober Chawla MD 02-Mar-2019 15:57:35
== END 2019-03-02 14:48 | disposition home or self-care (01) ==
LOC: ER 08:08
DX: S82.842A Displaced bimalleolar fracture of left lower leg, initial encounter for closed fracture (principal); W19.XXXA Unspecified fall, initial encounter; Y92.009 Unspecified place in unspecified non-institutional (private) residence as the place of occurrence of the external cause; R55 Syncope and collapse; I10 Essential (primary) hypertension; Z88.0 Allergy status to penicillin; Z88.2 Allergy status to sulfonamides
CPT/HCPCS: 27810; 93005; 96376; 99284; 96361; 99152; 96374; 96375; 36415; 82553; 82550; 85025; 80053; 84484; 73610; 93010; J2250; J3010; J2270; J2405; J7030

== ENCOUNTER 2019-03-11 12:51 | Day surgery (SDC) | payer MEDICARE ==
[~2019-03-11 12:51] MED LIST changes: -LACTATED RINGERS 1000 ML IV PRN; -LIDOCAINE 0.5% INJ-PF (5 MG/ML) 50 ML SDV SUBCUT PRN
[2019-03-11] MEDS ORDERED: CLINDAMYCIN 600 MG/D5W RTU 600 MG/50 ML RTUPB IV ONE (13:04)
--- NOTE | 2019-03-11 14:13 | RADIOLOGY REPORT (SQ) ---
EXAM DESCRIPTION: CHEST SINGLE VIEW COMPLETED DATE/TIME: 03/11/2019 2:02 pm REASON FOR STUDY: PREOP COMPARISON: 08/14/2018 EXAM PARAMETERS: NUMBER OF VIEWS: One view. TECHNIQUE: Single frontal radiographic view of the chest acquired. RADIATION DOSE: NA LIMITATIONS: None. FINDINGS: LUNGS AND PLEURA: Low lung volumes. No opacities, masses or pneumothorax. No pleural eff usion. MEDIASTINUM AND HILAR STRUCTURES: No masses. Contour normal. HEART AND VASCULAR STRUCTURES: Heart normal in size. Normal vasculature. BONES: No acute findings. HARDWARE: None in the chest. OTHER: Hardware anterior fusion mid-lower cervical spine, stable finding. Prior cholecystectomy. IMPRESSION: 1. NO ACUTE RADIOGRAPHIC FINDING IN THE CHEST. TECHNICAL DOCUMENTATION: JOB ID: [id number] [employer]- All Rights Reserved Reading location - IP/workstation name: [email or web address]
[2019-03-11] MEDS ORDERED: MIDAZOLAM 2 MG/2 ML INJ ONE (16:06)
--- NOTE | 2019-03-11 16:21 | Discharge Summary ---
Discharge Summary (SDC) - Discharge Final Diagnosis: Left bimalleolar ankle fracture Date of Surgery: 03/11/19 Discharge Date: 03/11/19 Condition: Good Forms: ASU Anesthesia D/C Instruction, Discharge POC-Surgical Service Treatment or Instructions: Enteric-coated aspirin 325 mg daily for DVT prophylaxis Schedule Follow Up w/ Dr. Ta Hedrick @ [facility] to be seen in 10-14 days or as scheduled [place]: [place]: Clark: Ice and elevate Keep splint clean/dry/intact, do not remove. If your toes become numb please unwrap the Toni wrap but leave the splint in place, if the sensation does not return within 30 minutes please return to the emergency department. Nonweightbearing left lower extremity ORAL NARCOTIC MEDICATION: You have been given a prescription for pain control. This medication is a narcotic. It's best taken with food, as nausea can result if taken on an empty stomach. Don't operate machinery or drive within six hours of taking this medication. Do not combine this medicine with alcohol, or with any medication which can cause sedation (such as cold tablets or sleeping pills) unless you get permission from the physician. Narcotics tend to cause constipation. If possible, drink plenty of fluids and eat a diet high in fiber and fruits. Please be aware that prescription narcotics also have the potential for abuse. People become addicted to these medications because of the general sense of wellbeing that they induce. This feeling along with a significant reduction in tension, anxiety, and aggression provides a stimulating seductive quality to these drugs. Once your pain is under control, we encourage you to discard your unused narcotics. Prescriptions: Aspirin [Aspirin 325 mg Tablet] 325 mg PO DAILY 21 Days tablet Oxycodone HCl/Acetaminophen [Percocet 7.5-325 mg Tablet] 1 each PO Q6 PRN #25 tablet PRN Reason: Referrals: JUDY CINTRON MD [Primary Care Provider] - TA HEDRICK DO [ACTIVE STAFF] - 03/24/19 3:10 pm Discharge Diet: As Tolerated Respiratory Treatments at Home: Deep Breathing/Coughing, Incentive Spirometer Discharge Activity: No Lifting Over 10 Pounds, No Lifting/Push/Pulling Report the Following to Your Physician Immediately: Fever over 101 Degrees, Unusual Bleeding, Redness, Swelling, Warmth, Increased Soreness
[2019-03-11] MEDS ORDERED: RINGERS SOLUTION,LACTATED 1,000 ML IV ONE (16:30)
[2019-03-11] MEDS ORDERED: DIPHENHYDRAMINE HCL 50 MG/ML VIAL IV PRN (17:32)
[2019-03-11] MEDS ORDERED: FENTANYL CITRATE INJ/PF 100 MCG/2 ML AMPUL IV PRN ×3 (17:32)
[2019-03-11] MEDS ORDERED: MEPERIDINE HCL/PF INJ 25 MG/1 ML DISP.SYRIN IV PRN (17:32)
[2019-03-11] MEDS ORDERED: ONDANSETRON HCL INJ/PF 4 MG/2 ML SDV IV PRN ×2 (17:32→18:18)
[2019-03-11] MEDS ORDERED: PROMETHAZINE HCL INJ 25 MG/1 ML VIAL IV PRN ×2 (17:32)
[2019-03-11] MEDS ORDERED: MORPHINE SULFATE 10 MG/ML INJ IV PRN (17:32)
[2019-03-11] MEDS ORDERED: BUPIVACAINE HCL 0.5 % INJ/PF 30 ML SDV ONE (17:39)
[2019-03-11] MEDS ORDERED: HYDROMORPHONE HCL INJ/PF 2 MG/ML AMPULE IV PRN (18:18)
[2019-03-11] MEDS ORDERED: OXYCODONE-ACETAMINOPHEN 5-325 MG TABLET PO PRN (18:18)
--- NOTE | 2019-03-11 18:23 | Operative Report ---
Operative Report DATE OF SURGERY: 03/11/19 PREOPERATIVE DIAGNOSIS: Left bimalleolar ankle fracture POSTOPERATIVE DIAGNOSIS: Same OPERATION: Open reduction internal fixation left bimalleolar ankle fracture SURGEON: JONATHAN HEDRICK ANESTHESIA: GA COMPLICATIONS: None ESTIMATED BLOOD LOSS: Minimal PROCEDURE: Indication for above procedure: 58-year-old female who sustained a fall onto her left ankle. Patient was seen at the emergency room where x-rays demonstrated fracture dislocation of the ankle. Patient was successfully reduced she was then brought to my office at which point we discussed treatment option including operative versus nonoperative intervention. Risk and benefits were explained patient verbalized understanding consented for surgical procedure. Procedure In Detail: Patient was seen and evaluated in the preoperative holding area. The left lower extremity was initialized and marked. Patient received 2g of Ancef IV for bacterial prophylaxis. Patient was taken back to the operative room where transferred to the operative table and placed under general anesthesia. Once they were adequately anesthetized a nonsterile tourniquet was placed on the lower extremity. A surgical team debriefing was performed ensuring all instrumentation was available, the surgical procedure was discussed with possible concerns reviewed. The upper extremity was prepped with ChloraPrep and draped in a sterile fashion. A timeout was done identifying correct patient, procedure and extremity everyone in attendance agree with this and verbalized no concerns. The extremity was exsanguinated the tourniquet was inflated to 300 mmHg. Longitudinal skin incision was utilized over the lateral malleolus. Blunt dissection was performed. A peripheral veins were coagulated with cautery. Superficial peroneal nerve was identified and retracted. Supraperiosteal dissection was performed proximally and distally at the fracture site fracture edges were debrided of hematoma and local periosteum to adequately reduce the fracture. There was significant comminution of the distal fragment and thus it was not amenable to interfragmentary fixation. A Daniele distal fibular locking plate was then contoured and placed. Given the patient's anatomy it fit most secure along the anterior border proximally and thus screws required drilling from anterior to posterior trajectory. Large K wire was placed across the fracture fragments to obtain provisional fixation. Initial fixation was obtained distally within the lateral malleolus with bicortical screw. The plate was then secured proximally with bicortical shaft screw. C-arm was then obtained confirming adequate length of the fibula and reduction. Fixation was then completed distally with appropriate size locking screws under live fluoroscopy. Previous bicortical screw was exchanged for the appropriate size locking screw. Approximately 2 additional bicortical screws were placed one being a locking screw. Wound was then copiously irrigated with normal saline. Longitudinal skin incision was made over the medial malleolus. Blunt dissection was performed. A small peripheral veins were coagulated with cautery. Periosteum over the fracture was debrided to identify cortex to allow adequate reduction. Large reduction tenaculum was then placed anatomically reducing the medial malleolar fragment. 2 threaded K wires were placed perpendicular to the fracture fragment anterior and posterior avoiding encroachment to the posterior tibialis tendon. C-arm was obtained confirming appropriate placement. Appropriate size 4.0 mm partially-threaded cannulated screws were inserted obtaining adequate fixation of medial malleolus. Cotton test was then performed under live fluoroscopy to ensure no evidence of tibia-fibular clear space widening. Adequate stability throughout passive plantarflexion/dorsiflexion. Wounds were then copiously irrigated with normal saline. Deep soft tissues were closed with 3-0 Vicryl suture. Subcutaneous tissues were closed with 3-0 and 4- 0 Monocryl suture. Skin was closed with frances. Wound was dressed with Acticoat 4 x 4's and patient was placed in a 3 sided splint with the ankle at neutral position. Sponge counts, instrument counts, needle counts were correct. Patient was then awoken from anesthesia. Transferred from the operating room table to the operating room stretcher. There was no intraoperative complications patient tolerated procedure well stable to PACU. Postop plan: Patient will follow-up in the office in 2 weeks at which point we will obtain radiographs and place patient in a short leg cast she will maintain nonweightbearing until fracture healing is noted.
[2019-03-11] MEDS ORDERED: ROPIVACAINE HCL 0.5% INJ/PF (5 MG/1 ML) 30 ML SDV ONE (18:25)
[2019-03-11] MEDS ORDERED: LIDOCAINE 2% INJ (20 MG/ML) 20 ML MDV ONE ×2 (18:26→18:31)
[2019-03-11] MEDS ORDERED: LIDOCAINE 2%/EPINEPHRINE INJ 20 ML VIAL ONE (18:34)
[2019-03-11] MEDS ORDERED: OXYCODONE-ACETAMINOPHEN 5-325 MG TABLET ONE (19:19)
[2019-03-11 21:32] VITALS: BP 143/74
--- NOTE | 2019-03-12 13:11 | RADIOLOGY REPORT (SQ) ---
EXAM DESCRIPTION: ANKLE LEFT AP/LATERAL; NO CHG FLUORO COMPLETED DATE/TIME: 03/11/2019 6:12 pm; 03/11/2019 6:11 pm REASON FOR STUDY: ORIF LT ANKLE S82.842A DISPLACED BIMALLEOLAR FRACTURE OF LEFT LOWER LEG, I COMPARISON: 03/02/2019. FLUOROSCOPY TIME: 0.8 minutes. 8 images saved to PACS. TECHNIQUE: Intra-operative images acquired during surgical procedure to evaluate progress. NUMBER OF IMAGES: 8 images. LIMITATIONS: None. FINDINGS: HARDWARE IN THE MEDIAL MALLEOLUS AND DISTAL FIBULA. IMPRESSION: IMAGE(S) OBTAINED DURING PROCEDURE. COMMENT: Quality ID 145: Final reports for procedures using fluoroscopy that document radiation exp osure indices, or exposure time and number of fluorographic images (if radiation exposure indices are not available) Please consult full operative report of the attending physician for description of the procedure. TECHNICAL DOCUMENTATION: JOB ID: [id number] [employer]- All Rights Reserved Reading location - IP/workstation name: [email or web address]
--- NOTE | 2019-03-12 13:11 | RADIOLOGY REPORT (SQ) ---
EXAM DESCRIPTION: ANKLE LEFT AP/LATERAL; NO CHG FLUORO COMPLETED DATE/TIME: 03/11/2019 6:12 pm; 03/11/2019 6:11 pm REASON FOR STUDY: ORIF LT ANKLE S82.842A DISPLACED BIMALLEOLAR FRACTURE OF LEFT LOWER LEG, I COMPARISON: 03/02/2019. FLUOROSCOPY TIME: 0.8 minutes. 8 images saved to PACS. TECHNIQUE: Intra-operative images acquired during surgical procedure to evaluate progress. NUMBER OF IMAGES: 8 images. LIMITATIONS: None. FINDINGS: HARDWARE IN THE MEDIAL MALLEOLUS AND DISTAL FIBULA. IMPRESSION: IMAGE(S) OBTAINED DURING PROCEDURE. COMMENT: Quality ID 145: Final reports for procedures using fluoroscopy that document radiation exp osure indices, or exposure time and number of fluorographic images (if radiation exposure indices are not available) Please consult full operative report of the attending physician for description of the procedure. TECHNICAL DOCUMENTATION: JOB ID: [id number] [employer]- All Rights Reserved Reading location - IP/workstation name: [email or web address]
== END 2019-03-11 20:45 | disposition home or self-care (01) ==
LOC: OROUT 12:51
PROVIDERS: ATTEND Orthopaedic Surgery
DX: S82.842A Displaced bimalleolar fracture of left lower leg, initial encounter for closed fracture (principal); W19.XXXA Unspecified fall, initial encounter; S52.201K Unspecified fracture of shaft of right ulna, subsequent encounter for closed fracture with nonunion; M25.531 Pain in right wrist; M79.631 Pain in right forearm; F17.210 Nicotine dependence, cigarettes, uncomplicated; I10 Essential (primary) hypertension; Z88.0 Allergy status to penicillin; Z88.2 Allergy status to sulfonamides; Z79.899 Other long term (current) drug therapy
CPT/HCPCS: 73600; 71045; 01480; 27814; J2795; J2250; J3490 ×3; J1100; J3010; A9270; J2405; J2704

== ENCOUNTER → 2019-06-12 | Outpatient (CLI) | payer MEDICARE ==
--- NOTE | 2019-06-12 15:14 | RADIOLOGY REPORT (SQ) ---
EXAM DESCRIPTION: VENOUS UNILATERAL LOWER IMAGES COMPLETED DATE/TIME: 06/12/2019 2:56 pm REASON FOR STUDY: LLE FRACTURE S82.842A DISPLACED BIMALLEOLAR FRACTURE OF LEFT LOWER LEG, I R22.42 LOCALIZED SWELLING, MASS AND LUMP, LEFT LOWER LIMB COMPARISON: None. TECHNIQUE: Dynamic and static bowman scale and color images acquired of the left leg venous system. Se lected spectral images acquired with additional compression and augmentation maneuvers. The contralat eral common femoral vein and saphenofemoral junction were also imaged. Images stored on PACS. LIMITATIONS: None. FINDINGS: COMMON FEMORAL: Normal phasicity, compression and augmentation. No visualized echogenic ma terial on bowman scale. No defects on color images. FEMORAL: Normal compression and augmentation. No visualized echogenic material on bowman scale. No defe cts on color images. POPLITEAL: Normal compression, augmentation. No visualized echogenic material on bowman scale. No defec ts on color images. CALF VESSELS: Normal compression, augmentation. No visualized echogenic material on bowman scale. No de fects on color images. GSV and SSV: Normal compression, augmentation. No visualized echogenic material on bowman scale. No def ects on color images. ANY DEEP VENOUS INSUFFICIENCY: Not evaluated. ANY EVIDENCE OF POPLITEAL CYST: No. OTHER: No other significant finding. CONTRALATERAL COMMON FEMORAL VEIN AND SAPHENOFEMORAL JUNCTION: Normal phasicity, compression and augmentation. No visualized echogenic material on bowman scale. No de fects on color images. IMPRESSION: NO EVIDENCE DVT OR SVT IN THE LEFT LEG. TECHNICAL DOCUMENTATION: JOB ID: [id number] 2010 [employer]- All Rights Reserved Reading location - IP/workstation name: [email or web address]
== END ==
LOC: SP 12:57
PROVIDERS: ATTEND Orthopaedic Surgery
DX: S82.842A Displaced bimalleolar fracture of left lower leg, initial encounter for closed fracture (principal); X58.XXXA Exposure to other specified factors, initial encounter; R22.42 Localized swelling, mass and lump, left lower limb
CPT/HCPCS: 93971

== ENCOUNTER 2019-09-23 09:04 | Day surgery (SDC) | payer OTHER, MEDICARE ==
[2019-09-18 10:27] LABS: HEMATOCRIT 40.9 % (36.0-47.0); HEMOGLOBIN 13.8 g/dL (12.0-15.5); MEAN CORPUSCULAR HEMOGLOBIN 30.9 pg (27.0-33.4); MEAN CORPUSCULAR HGB CONC 33.8 g/dL (32.0-36.0); MEAN CORPUSCULAR VOLUME 91 fl (80-97); PLATELET COUNT 290 10^3/uL (150-450); RED BLOOD COUNT 4.47 10^6/uL (3.72-5.28); RED CELL DISTRIBUTION WIDTH 14.5 % (11.5-14.0); WHITE BLOOD COUNT 10.3 10^3/uL (4.0-10.5)
[2019-09-18 10:41] LABS: APPEARANCE,URINE SLIGHTLY-CLOUDY; BILIRUBIN,URINE NEGATIVE (NEGATIVE); COLOR,URINE YELLOW; GLUCOSE, URINE NEGATIVE (NEGATIVE); KETONES,URINE NEGATIVE (NEGATIVE); LEUKOCYTE ESTERASE,URINE TRACE (NEGATIVE); NITRITE,URINE NEGATIVE (NEGATIVE); PROTEIN,URINE NEGATIVE (NEGATIVE); URINE SPECIFIC GRAVITY 1.014; UROBILINOGEN,URINE NEGATIVE mg/dL (<2.0)
[2019-09-18 10:52] LABS: ALBUMIN 3.8 g/dL (3.5-5.0); ALKALINE PHOSPHATASE 108 U/L (38-126); ANION GAP 8 (5-19); ASPARTATE AMINO TRANSFERASE 18 U/L (14-36); BILIRUBIN,TOTAL 0.4 mg/dL (0.2-1.3); BLOOD UREA NITROGEN 11 mg/dL (7-20); CARBON DIOXIDE 26 mmol/L (22-30); CHLORIDE 106 mmol/L (98-107); GLUCOSE 120 mg/dL (75-110); POTASSIUM 4.7 mmol/L (3.6-5.0); TOTAL PROTEIN 6.2 g/dL (6.3-8.2)
[2019-09-18 10:54] LABS: C-REACTIVE PROTEIN 22.3 mg/L (<10.0); PHOSPHORUS 4.4 mg/dL (2.5-4.5)
[2019-09-18 11:25] LABS: ERYTHROCYTE SEDIMENTATION RATE 28 mm/hr (0-30)
--- NOTE | 2019-09-18 12:00 | RADIOLOGY REPORT (SQ) ---
EXAM DESCRIPTION: CHEST PA/LATERAL IMAGES COMPLETED DATE/TIME: 09/18/2019 11:24 am REASON FOR STUDY: PRE-OP COMPARISON: 03/11/2019 EXAM PARAMETERS: NUMBER OF VIEWS: two views TECHNIQUE: Digital Frontal and Lateral radiographic views of the chest acquired. RADIATION DOSE: NA LIMITATIONS: Overlapping breast tissue. FINDINGS: LUNGS AND PLEURA: No opacities, masses or pneumothorax. No pleural effusion. MEDIASTINUM AND HILAR STRUCTURES: No masses or contour abnormalities. HEART AND VASCULAR STRUCTURES: Heart normal size. No evidence for failure. BONES: No acute findings. HARDWARE: None in the chest. OTHER: No other significant finding. IMPRESSION: NO SIGNIFICANT RADIOGRAPHIC FINDING IN THE CHEST. TECHNICAL DOCUMENTATION: JOB ID: [id number] 2010 [employer]- All Rights Reserved Reading location - IP/workstation name: [email or web address]
--- NOTE | 2019-09-18 15:12 | EKG REPORT ---
SEVERITY:- NORMAL ECG - SINUS RHYTHM : Confirmed by: Hiren Salinas MD 18-Sep-2019 15:11:57
[~2019-09-23 09:04] MED LIST changes: +CLINDAMYCIN 600 MG/D5W RTU 600 MG/50 ML RTUPB IV ONE; -DEXAMETHASONE SOD PHOSPHATE INJ 4 MG/1 ML VIAL ONE; +LACTATED RINGERS 1000 ML IV PRN; +LIDOCAINE 0.5% INJ-PF (5 MG/ML) 50 ML SDV SUBCUT PRN
[2019-09-23] MEDS ORDERED: BUPIVACAINE HCL 0.5 % INJ/PF 30 ML SDV ONE (10:21)
[2019-09-23] MEDS ORDERED: LIDOCAINE 1% INJ-PF (10 MG/ML) 30 ML SDV ONE (10:22)
[2019-09-23] MEDS ORDERED: PROMETHAZINE HCL INJ 25 MG/1 ML VIAL IV PRN ×2 (10:54)
[2019-09-23] MEDS ORDERED: MORPHINE SULFATE 10 MG/ML INJ IV PRN ×2 (10:54→12:08)
[2019-09-23] MEDS ORDERED: MEPERIDINE HCL/PF INJ 25 MG/1 ML DISP.SYRIN IV PRN (10:54)
[2019-09-23] MEDS ORDERED: DIPHENHYDRAMINE HCL 50 MG/ML VIAL IV PRN (10:54)
[2019-09-23] MEDS ORDERED: FENTANYL CITRATE INJ/PF 100 MCG/2 ML AMPUL IV PRN ×3 (10:54)
[2019-09-23] MEDS ORDERED: ONDANSETRON HCL INJ/PF 4 MG/2 ML SDV IV PRN ×2 (10:54→12:08)
[2019-09-23] MEDS ORDERED: OXYCODONE-ACETAMINOPHEN 5-325 MG TABLET PO PRN (12:08)
--- NOTE | 2019-09-23 12:10 | Discharge Summary ---
Discharge Summary (SDC) - Discharge Final Diagnosis: Right ulnar nonunion Date of Surgery: 09/23/19 Discharge Date: 09/23/19 Condition: Good Treatment or Instructions: Schedule Follow Up w/ Dr. Ta Godoy @ [facility] for Surgery to be seen in 10-14 days or as scheduled [place]: [place]: [place]: Ice and elevate Keep splint clean/dry/intact, do not remove. If your fingers become numb please unwrap the Toni wrap but leave the splint in place, if the sensation does not return within 30 minutes please return to the emergency department. May begin finger range of motion attempting to make full fist. Please use ibuprofen (Motrin or Advil) 600-800 mg every 8 hours as needed for pain or fever DO NOT TAKE w/ TORADOL may use once TORADOL complete. You may also use acetaminophen (Tylenol) 1000 mg every 4-6 hours as needed for pain or fever. Please be aware that many medications contain acetaminophen, do not exceed a total of 1000 mg of acetaminophen every 6 hours. If ibuprofen and acetaminophen are not sufficient for your pain you may take the Percocet/[place]. Please be aware that the Percocet/[place] does contain Tylenol. Stool softener of choice when on pain medication. USE OF TCED-ZKT-[id number] IBUPROFEN: Ibuprofen (Advil, Nuprin, Medipren, Motrin IB) is a medication for fever and pain control. In addition, it has anti- inflammatory effects which may be beneficial, especially in the treatment of injuries. It's best to take ibuprofen with food. Persons with ulcer disease or allergy to aspirin should notify their physician of this before taking ibuprofen. Ibuprofen can be given every four to six hours, for a total of four doses daily. Age Pain or fever dose Antiinflammatory dose 6-8 yr 200 mg (1 tab) 200 mg (1 tab) 9-11 yr 200 mg (1 tab) 200-400 mg (1-2 tab) 11-14 yr 200-400 mg (1-2 tab) 400 mg (2 tab) 15-adult 400 mg (2 tab) 600 mg (3 tab) ORAL NARCOTIC MEDICATION: You have been given a prescription for pain control. This medication is a narcotic. It's best taken with food, as nausea can result if taken on an empty stomach. Don't operate machinery or drive within six hours of taking this medication. Do not combine this medicine with alcohol, or with any medication which can cause sedation (such as cold tablets or sleeping pills) unless you get permission from the physician. Narcotics tend to cause constipation. If possible, drink plenty of fluids and eat a diet high in fiber and fruits. Please be aware that prescription narcotics also have the potential for abuse. People become addicted to these medications because of the general sense of wellbeing that they induce. This feeling along with a significant reduction in tension, anxiety, and aggression provides a stimulating seductive quality to these drugs. Once your pain is under control, we encourage you to discard your unused narcotics. Referrals: JUDY CINTRON MD [Primary Care Provider] - Discharge Diet: As Tolerated Respiratory Treatments at Home: Deep Breathing/Coughing, Incentive Spirometer Discharge Activity: No Lifting Over 10 Pounds, No Lifting/Push/Pulling Report the Following to Your Physician Immediately: Fever over 101 Degrees, Unusual Bleeding, Redness, Swelling, Warmth, Increased Soreness
[2019-09-23] MEDS: MEPERIDINE HCL/PF INJ 25 MG/1 ML DISP.SYRIN ONE ×2 (12:16→12:21)
--- NOTE | 2019-09-23 12:16 | Operative Report ---
Operative Report DATE OF SURGERY: 09/23/19 PREOPERATIVE DIAGNOSIS: Painful hardware right forearm POSTOPERATIVE DIAGNOSIS: Same OPERATION: Removal of Deep Hardware Right Forearm with Debridement. Darrach Resection Right Distal Ulna SURGEON: JONATHAN HEDRICK ANESTHESIA: GA TISSUE REMOVED OR ALTERED: Tissue sent to pathology and microbiology for AFB, fungal, aerobic and anaerobic culture COMPLICATIONS: None ESTIMATED BLOOD LOSS: Minimal PROCEDURE: Indication for above procedure: 58-year-old female who underwent ulnar shortening osteotomy unfortunately she developed nonunion and thus underwent revision ulnar shortening osteotomy nonunion with olecranon autograft. Unfortunately patient continued to have instability at the nonunion site with notable lucency of the plate distally. At that point there was concern for infectious process although inflammatory and infectious markers up to this point have been negative. We discussed treatment options including distal ulna resection with possible reconstructive procedure in the future once cultures are finalized to ensure no deep infection. Procedure In Detail: Patient was seen and evaluated in the preoperative holding area. The RIGHT upper extremity was initialized and marked. Patient received 600 mg clindamycin IV for bacterial prophylaxis. Patient was taken back to the operative room where transferred to the operative table and placed under general anesthesia. Once they were adequately anesthetized a nonsterile tourniquet was placed on the upper extremity. A surgical team debriefing was performed ensuring all instrumentation was available, the surgical procedure was discussed with possible concerns reviewed. The upper extremity was prepped with chlorhexidine and alcohol and draped in a sterile fashion. A timeout was done identifying correct patient, procedure and extremity everyone in attendance agree with this and verbalized no concerns. The extremity was exsanguinated the tourniquet was inflated to 250 mmHg. Longitudinal skin incision was made. Blunt dissection was performed. Dorsal ulnar sensory nerve was identified and retracted. Interval between the ECU and FCU was established. Any peripheral veins were coagulated with bipolar cautery. The plate was encountered. At the nonunion site there was cloudy appearing exudate from the distal ulna and the nonunion site. The plate was then removed in its entirety. Cultures were obtained. The nonunion site was debrided and screw hole was curetted. Once this was debr ided there was significant necrotic bone which was nonviable along the distal ulna which I felt required resection given the amount of exudate and bone loss, especially after debridement. Thus with a osteotome the ulnar styloid was osteotomized under C arm and remanent of the distal ulna excised. Bone was sent to microbiology and pathology. Wound was then copiously irrigated with 2 L of normal saline. Any nonviable remnant tissue was debrided. C arm was obtained confirming there is no evidence of ulnar impingement. No evidence of ulnar translation of the carpus with range of motion. Through a prior drill hole a proximally based slip of the ECU established. This was then secured to the drill hole and sutured to itself with 0 Vicryl suture providing further stability of the proximal ulna remanent. Wound was once again irrigated with normal saline. ECU/FCU interval was closed with interrupted 0 Vicryl and 2-0 Vicryl suture. Tourniquet was deflated and peripheral bleeding was controlled with bipolar cautery. 30 cc of 0.5% bupivacaine without epinephrine was injected for postoperative pain control. Subcutaneous tissues were closed with interrupted 4-0 Monocryl suture. Skin was closed with horizontal mattress 4-0 nylon suture. Wound was dressed with Xeroform for fours and patient was placed in a sugar tong splint. Sponge counts, instrument counts, needle counts were correct. Patient was then awoken from anesthesia. Transferred from the operating room table to the operating room stretcher. There was no intraoperative complications patient tolerated procedure well stable to PACU. Postop plan: Patient will be transition to a [place] splint which she had previously for mobilization but may begin wrist range of motion. Once cultures and pathology are finalized we will discuss additional treatment options if patient becomes symptomatic including possible joint reconstruction.
[2019-09-23] MEDS: MORPHINE SULFATE 10 MG/ML INJ ONE ×3 (12:30→12:40)
[2019-09-23] MEDS ORDERED: OXYCODONE-ACETAMINOPHEN 5-325 MG TABLET ONE (13:18)
[2019-09-23 14:23] VITALS: BP 116/71
--- NOTE | 2019-09-23 15:58 | RADIOLOGY REPORT (SQ) ---
EXAM DESCRIPTION: NO CHG FLUORO; FOREARM RIGHT IMAGES COMPLETED DATE/TIME: 09/23/2019 3:06 pm REASON FOR STUDY: HARDWARE REMOVAL AND OSTEOTOMY RIGHT FOREARM ASSISTED WITH FLUORO IN OR COMPARISON: None. FLUOROSCOPY TIME: 12 seconds 2 Images saved to PACS LIMITATIONS: None. PROCEDURE: Hardware removal and osteotomy in the right forearm FINDINGS: Images from fluoro document removal of the ulnar hardware and resection of the distal ulna . IMPRESSION: Hardware removal and osteotomy. Refer to operative note for further information. COMMENT: PQRS 6045F: Fluoroscopy time of the procedure is documented in the report. TECHNICAL DOCUMENTATION: JOB ID: [id number] 2010 [employer]- All Rights Reserved Reading location - IP/workstation name: [email or web address]
--- NOTE | 2019-09-23 15:58 | RADIOLOGY REPORT (SQ) ---
EXAM DESCRIPTION: NO CHG FLUORO; FOREARM RIGHT IMAGES COMPLETED DATE/TIME: 09/23/2019 3:06 pm REASON FOR STUDY: HARDWARE REMOVAL AND OSTEOTOMY RIGHT FOREARM ASSISTED WITH FLUORO IN OR COMPARISON: None. FLUOROSCOPY TIME: 12 seconds 2 Images saved to PACS LIMITATIONS: None. PROCEDURE: Hardware removal and osteotomy in the right forearm FINDINGS: Images from fluoro document removal of the ulnar hardware and resection of the distal ulna . IMPRESSION: Hardware removal and osteotomy. Refer to operative note for further information. COMMENT: PQRS 6045F: Fluoroscopy time of the procedure is documented in the report. TECHNICAL DOCUMENTATION: JOB ID: [id number] 2010 [employer]- All Rights Reserved Reading location - IP/workstation name: [email or web address]
== END 2019-09-23 14:15 | disposition home or self-care (01) ==
LOC: OROUT 09:04
PROVIDERS: ATTEND Orthopaedic Surgery
DX: S52.201K Unspecified fracture of shaft of right ulna, subsequent encounter for closed fracture with nonunion (principal); X58.XXXD Exposure to other specified factors, subsequent encounter; T84.84XA Pain due to internal orthopedic prosthetic devices, implants and grafts, initial encounter; T84.614A Infection and inflammatory reaction due to internal fixation device of right ulna, initial encounter; Y83.8 Other surgical procedures as the cause of abnormal reaction of the patient, or of later complication, without mention of misadventure at the time of the procedure; Z03.818 Encounter for observation for suspected exposure to other biological agents ruled out; I10 Essential (primary) hypertension; J30.2 Other seasonal allergic rhinitis; Z79.899 Other long term (current) drug therapy; Z87.891 Personal history of nicotine dependence
CPT/HCPCS: 20680; 25240; 93005; 36415 ×2; 87070; 87205; 87101; 84100; 85027; 85652; 87635; 87075; 86140; 80053; 81001; 87186; 82306; 71046; 73090; 93010; 01830; J2250; J3490; J3010; J2175; J2270; J2405; J2704; C9803

== ENCOUNTER → 2020-01-13 | Outpatient (CLI) | payer MEDICARE ==
[2020-01-13 16:59] LABS: ABSOLUTE BASOPHILS # (AUTO) 0.1 10^3/uL (0.0-0.2); ABSOLUTE EOSINOPHILS # (AUTO) 0.1 10^3/uL (0.0-0.6); ABSOLUTE MONOCYTES (AUTO) 0.6 10^3/uL (0.1-1.4); ABSOLUTE NEUT (AUTO) 6.3 10^3/uL (1.7-8.2); BASOPHILS % (AUTO) 0.7 % (0-2); EOSINOPHILS % (AUTO) 1.5 % (0-6); HEMATOCRIT 38.2 % (36.0-47.0); HEMOGLOBIN 12.9 g/dL (12.0-15.5); MEAN CORPUSCULAR HEMOGLOBIN 30.7 pg (27.0-33.4); MEAN CORPUSCULAR HGB CONC 33.7 g/dL (32.0-36.0); MEAN CORPUSCULAR VOLUME 91 fl (80-97); PLATELET COUNT 262 10^3/uL (150-450); RED BLOOD COUNT 4.19 10^6/uL (3.72-5.28); RED CELL DISTRIBUTION WIDTH 14.7 % (11.5-14.0); SEGMENTED NEUTROPHILS % (AUTO) 68.8 % (42-78); TOTAL CELLS COUNTED % (AUTO) 100 %; WHITE BLOOD COUNT 9.2 10^3/uL (4.0-10.5)
[2020-01-13 17:02] LABS: APPEARANCE,URINE CLEAR; BILIRUBIN,URINE NEGATIVE (NEGATIVE); COLOR,URINE YELLOW; GLUCOSE, URINE NEGATIVE (NEGATIVE); KETONES,URINE NEGATIVE (NEGATIVE); LEUKOCYTE ESTERASE,URINE NEGATIVE (NEGATIVE); NITRITE,URINE NEGATIVE (NEGATIVE); PROTEIN,URINE NEGATIVE (NEGATIVE); URINE SPECIFIC GRAVITY 1.005; UROBILINOGEN,URINE NEGATIVE mg/dL (<2.0)
[2020-01-13 17:28] LABS: ALBUMIN 4.1 g/dL (3.5-5.0); ANION GAP 6 (5-19); BLOOD UREA NITROGEN 6 mg/dL (7-20); CALCIUM 9.2 mg/dL (8.4-10.2); CARBON DIOXIDE 29 mmol/L (22-30); CHLORIDE 103 mmol/L (98-107); GLUCOSE 85 mg/dL (75-110); POTASSIUM 4.4 mmol/L (3.6-5.0)
[2020-01-13 17:33] LABS: C-REACTIVE PROTEIN < 5.0 mg/L (<10.0)
[2020-01-13 17:42] LABS: ERYTHROCYTE SEDIMENTATION RATE 14 mm/hr (0-30)
--- NOTE | 2020-01-13 17:43 | EKG REPORT ---
SEVERITY:- ABNORMAL ECG - SINUS RHYTHM FIRST DEGREE AV BLOCK : Confirmed by: Deandra Rahman 13-Jan-2020 17:42:45
== END ==
LOC: OD 15:35
PROVIDERS: ATTEND Orthopaedic Surgery
DX: Z01.812 Encounter for preprocedural laboratory examination (principal); Z01.811 Encounter for preprocedural respiratory examination; Z01.810 Encounter for preprocedural cardiovascular examination; N95.9 Unspecified menopausal and perimenopausal disorder
CPT/HCPCS: 36415; 80048; 81001; 82040; 82306; 85025; 85652; 86140; 87070; 93005; 93010

== ENCOUNTER 2020-01-26 05:41 | Observation (INO) | payer MEDICARE, OTHER ==
[~2020-01-26 05:41] MED LIST changes: +ACETAMINOPHEN 325 MG TABLET PO PRN; +CEFAZOLIN 2 GM/D5W RTU 2 GM/50 ML RTUPB IV PRN; -CLINDAMYCIN 600 MG/D5W RTU 600 MG/50 ML RTUPB IV ONE; -CLINDAMYCIN 600 MG/D5W RTU 600 MG/50 ML RTUPB IV PRN; -FENTANYL CITRATE INJ/PF 100 MCG/2 ML AMPUL ONE; +GABAPENTIN 100 MG CAPSULE PO PRN; -LACTATED RINGERS 1000 ML IV PRN; -LIDOCAINE 0.5% INJ-PF (5 MG/ML) 50 ML SDV SUBCUT PRN; -MIDAZOLAM 2 MG/2 ML INJ ONE; -ONDANSETRON HCL INJ/PF 4 MG/2 ML SDV ONE; +OXYCODONE HCL SR 10 MG TABLET PO PRN; +PANTOPRAZOLE SODIUM 20 MG TABLET.DR PO PRN; -PROPOFOL INJ 200 MG/20 ML VIAL IV ONE; +SCOPOLAMINE HYDROBROMIDE 1.5 MG PATCH.TD72 TD PRN; +TRANEXAMIC ACID INJ/PF 1,000 MG/10 ML SDV IV PRN; +VANCOMYCIN HCL 1,000 MG in DEXTROSE 5%-WATER 250 ML IV PRN
[2020-01-26] MEDS ORDERED: LIDOCAINE 0.5% INJ-PF (5 MG/ML) 50 ML SDV ONE (06:21)
[2020-01-26] MEDS ORDERED: MIDAZOLAM 2 MG/2 ML INJ ONE (06:23)
[2020-01-26] MEDS ORDERED: EPHEDRINE SULFATE INJ 50 MG/1 ML AMPULE ONE (06:23)
[2020-01-26] MEDS ORDERED: TRANEXAMIC ACID INJ/PF 1,000 MG/10 ML SDV ONE (06:23)
[2020-01-26] MEDS ORDERED: ONDANSETRON HCL INJ/PF 4 MG/2 ML SDV ONE ×2 (06:23→07:03)
[2020-01-26] MEDS ORDERED: FENTANYL CITRATE INJ/PF 100 MCG/2 ML AMPUL ONE (06:23)
[2020-01-26] MEDS ORDERED: PROPOFOL INJ 200 MG/20 ML VIAL IV ONE (06:24)
[2020-01-26] MEDS ORDERED: EPINEPHRINE INJ/PF 1 MG/1 ML AMPULE ONE (06:27)
[2020-01-26] MEDS ORDERED: GABAPENTIN 100 MG CAPSULE ONE (07:03)
[2020-01-26] MEDS ORDERED: CELECOXIB 200 MG CAPSULE ONE (07:03)
[2020-01-26] MEDS ORDERED: OXYCODONE HCL SR 10 MG TABLET PO ONE (07:03)
[2020-01-26] MEDS ORDERED: SCOPOLAMINE HYDROBROMIDE 1.5 MG PATCH.TD72 ONE (07:03)
[2020-01-26] MEDS ORDERED: PANTOPRAZOLE SODIUM 20 MG TABLET.DR PO ONE ×2 (07:03→12:00)
[2020-01-26] MEDS ORDERED: ACETAMINOPHEN 325 MG TABLET ONE (07:03)
[2020-01-26] MEDS ORDERED: BUPIVACAINE HCL 0.25 % INJ/PF (2.5 MG/1 ML) 30 ML VIAL ONE (07:11)
[2020-01-26] MEDS ORDERED: VANCOMYCIN HCL INJ 1000 MG VIAL ONE (07:11)
[2020-01-26] MEDS ORDERED: LIDOCAINE 1% INJ-PF (10 MG/ML) 30 ML SDV ONE (07:11)
[2020-01-26] MEDS ORDERED: KETOROLAC TROMETHAMINE INJ/PF 30 MG/1 ML SDV ONE (07:11)
[2020-01-26 07:15] LABS: INTERNATIONAL RATION (INR) 0.95; PROTHROMBIN TIME 12.8 SEC (11.4-15.4)
[2020-01-26] MEDS ORDERED: DIPHENHYDRAMINE HCL 25 MG CAPSULE PO PRN (07:25)
[2020-01-26] MEDS ORDERED: ZOLPIDEM TARTRATE 5 MG TABLET PO PRN (07:25)
[2020-01-26] MEDS ORDERED: TRAMADOL HCL 50 MG TABLET PO PRN (07:25)
[2020-01-26] MEDS ORDERED: DEXAMETHASONE SOD PHOS INJ 10 MG/1 ML VIAL IV ONE (07:25)
[2020-01-26] MEDS ORDERED: TRANEXAMIC ACID INJ/PF 1,000 MG/10 ML SDV IV ONE (07:25)
[2020-01-26] MEDS ORDERED: OXYCODONE HCL IR 5 MG TABLET PO PRN ×4 (07:25)
[2020-01-26] MEDS ORDERED: MORPHINE SULFATE 10 MG/ML INJ IV PRN ×3 (07:25→08:15)
[2020-01-26] MEDS ORDERED: DOCUSATE SODIUM 100 MG CAPSULE PO PRN (07:25)
[2020-01-26] MEDS ORDERED: NORMAL SALINE 1000 ML 1,000 ML IV ONE (07:25)
[2020-01-26] MEDS ORDERED: ONDANSETRON 4 MG TAB.RAPDIS PO PRN (07:25)
[2020-01-26] MEDS ORDERED: CYCLOBENZAPRINE HCL 10 MG TABLET PO PRN (07:28)
[2020-01-26] MEDS ORDERED: CEFAZOLIN INJ 1 GM VIAL ONE (07:49)
[2020-01-26] MEDS ORDERED: FENTANYL CITRATE INJ/PF 100 MCG/2 ML AMPUL IV PRN ×3 (08:15)
[2020-01-26] MEDS ORDERED: PROMETHAZINE HCL INJ 25 MG/1 ML VIAL IV PRN ×2 (08:15)
[2020-01-26] MEDS ORDERED: ONDANSETRON HCL INJ/PF 4 MG/2 ML SDV IV PRN (08:15)
[2020-01-26] MEDS ORDERED: DIPHENHYDRAMINE HCL 50 MG/ML VIAL IV PRN (08:15)
[2020-01-26] MEDS ORDERED: MEPERIDINE HCL/PF INJ 25 MG/1 ML DISP.SYRIN IV PRN (08:15)
--- NOTE | 2020-01-26 08:50 | Discharge Summary ---
Discharge Summary (SDC) - Discharge Final Diagnosis: Right total hip arthroplasty Date of Surgery: 01/26/20 Discharge Date: 01/26/20 Condition: Stable Treatment or Instructions: Full details of postoperative instructions have been provided to the patient in the clinic. Additionally they should maintain their bandage in place for 10 days, and then changed to a dry dressing. They can take showers with this occlusive dressing but any further dressing should also be occlusive. No showers with the wound unprotected until cleared by me in the clinic. If the bandage falls off early or become saturated they can change as needed to another occlusive dressing. Follow-up with Dr. Thor Peacock, orthopedic surgeon at [facility] for surgery, in 10 days. Call for an appointment. . [address], [place] [address] Referrals: JUDY CINTRON MD [Primary Care Provider] - Discharge Diet: As Tolerated Respiratory Treatments at Home: Deep Breathing/Coughing Discharge Activity: Activity As Tolerated, No Driving, No Lifting Over 10 Pounds, Slowly Increase Activity, No tub bath, Walk Frequently Activities Provided by Home Health Agency: Physical Therapy Adaptive Devices on Discharge: Rolling Walker, Bedside Commode Report the Following to Your Physician Immediately: Shortness of Breath, Fever over 101 Degrees, Unusual Bleeding, Drainage-Yellow
--- NOTE | 2020-01-26 08:53 | Operative Report ---
Operative Report DATE OF SURGERY: 01/26/20 PREOPERATIVE DIAGNOSIS: Severe right hip primary osteoarthritis POSTOPERATIVE DIAGNOSIS: Severe right hip primary osteoarthritis OPERATION: Right total hip arthroplasty SURGEON: LISS REYNOLDS JR ANESTHESIA: Spinal COMPLICATIONS: None ESTIMATED BLOOD LOSS: 50 cc PROCEDURE: Implants: [employer] a fit size 7 femoral stem with standard offset, a R3 size 48 cup, and a standard liner, a 0 neck length 32 mm Oxinium head OPERATIVE PROCEDURE: Patient was brought to the operating room on and underwent spinal anesthesia. 2 grams of Ancef and 1 g of vancomycin was given. After proper anesthesia was obtained, patient was positioned, padded, prepped, and draped in the usual sterile fashion on the operating room table. Appropriate time out was performed. An anterior approach to the hip was undertaken with meticulous hemostasis through the deep interval. A capsulectomy was performed followed by exposure of the femoral neck. The femoral neck was cut in line with the femoral broach and the femoral head was removed. The acetabulum was then exposed with three retractors in an atraumatic fashion. Soft tissue and osteophytes were removed. Medialization reaming was performed followed by reaming of the acetabulum. Wound was irrigated with dilute betadyne solution and the 48 mm acetabulum was impacted into correct position and stability checked by manipulating the impaction handle which rocked the pelvis. A standard liner was impacted into the shell with good stability. Potential impinging osteophytes were removed. Attention was then directed toward the femur, which was exposed with two retractors in an atraumatic fashion. A bone hook was placed to carefully perform releases along the superior capsule until the femur was safely delivered through the wound. A box maker wood was utilized followed by lateralization rasping and then broaching up to a stable, filled proximal femur. With a standard offset neck and a 0 neck length 32 mm head, stability was good in flexion and extension with equal leg lengths. The final size 7 stem was impacted into a copiously irrigated femoral canal. The final size 32 mm, 0 neck length head was impacted on a clean dry femoral taper. The hip was irrigated and reduced, further irrigation with antibiotic solution, betadine solution, then antibiotic solution. Bleeders were coagulated with bovie cautery. The fascia was then closed with number 2 barbed PDS; the subcutaneous tissue closed with 2-0 monocryl and then a running 3-0 monocryl subcuticular. A silver dressing was then applied. All needle sponge and instrument counts were correct. Patient was awakened from sedation anesthesia and taken to recovery room in stable c ondition.
--- NOTE | 2020-01-26 09:52 | RADIOLOGY REPORT (SQ) ---
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 NUMBER OF VIEWS: Two views. TECHNIQUE: AP pelvis and additional frog legview of the right hip. LIMITATIONS: None. FINDINGS: MINERALIZATION: Normal. RIGHT HIP: The MEGHANA hardware is in proper alignment. There is no periprosthetic fracture. LEFT HIP: No fracture or dislocation. PUBIS AND ISCHIUM: The ilioischial and iliopectineal lines are intact. There is no diastasis of the pubic symphysis. PELVIS: No fracture. SACRUM: The sacrum is obscured by overlying bowel. LOWER LUMBAR SPINE: Laminectomy defect and transpedicular fusion hardware at L5-S1. SOFT TISSUES: Subcutaneous emphysema lateral to the MEGHANA hardware. OTHER: No other finding. IMPRESSION: Intact right-sided MEGHANA hardware with expected immediate postoperative findings. TECHNICAL DOCUMENTATION: JOB ID: [id number] [employer]- All Rights Reserved Reading location - IP/workstation name: [email or web address]
[2020-01-26] MEDS ORDERED: (PENDING PHARMACY ID) (Cetirizine Hcl [Zyrtec] 10 MG Capsule) PO SCH (10:00)
[2020-01-26] MEDS ORDERED: (PENDING PHARMACY ID) (Gabapentin [Gabapentin] 600 MG Tablet) PO SCH (10:00)
[2020-01-26] MEDS ORDERED: (PENDING PHARMACY ID) (Metformin Hcl [Metformin Hcl Er] 500 MG Tab.Er.24h) PO SCH (10:00)
--- NOTE | 2020-01-26 10:11 | RADIOLOGY REPORT (SQ) ---
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 FLUOROSCOPY TIME: 0 minutes. 1 image saved to PACS. TECHNIQUE: Intra-operative fluoroscopic images of the right hip were obtained. NUMBER OF IMAGES: 1 LIMITATIONS: None. FINDINGS: Refer to the separate operative report. IMPRESSION: IMAGE(S) OBTAINED DURING PROCEDURE. COMMENT: Quality ID 145: Final reports for procedures using fluoroscopy that document radiation exp osure indices, or exposure time and number of fluorographic images (if radiation exposure indices are not available) Please consult full operative report of the attending physician for description of the procedure. TECHNICAL DOCUMENTATION: JOB ID: [id number] 2010 [employer]- All Rights Reserved Reading location - IP/workstation name: [email or web address]
--- NOTE | 2020-01-26 10:11 | RADIOLOGY REPORT (SQ) ---
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 FLUOROSCOPY TIME: 0 minutes. 1 image saved to PACS. TECHNIQUE: Intra-operative fluoroscopic images of the right hip were obtained. NUMBER OF IMAGES: 1 LIMITATIONS: None. FINDINGS: Refer to the separate operative report. IMPRESSION: IMAGE(S) OBTAINED DURING PROCEDURE. COMMENT: Quality ID 145: Final reports for procedures using fluoroscopy that document radiation exp osure indices, or exposure time and number of fluorographic images (if radiation exposure indices are not available) Please consult full operative report of the attending physician for description of the procedure. TECHNICAL DOCUMENTATION: JOB ID: [id number] 2010 [employer]- All Rights Reserved Reading location - IP/workstation name: [email or web address]
[2020-01-26] MEDS ORDERED: ACETAMINOPHEN 325 MG TABLET PO SCH (12:00)
[2020-01-26] MEDS ORDERED: CEFAZOLIN SODIUM 2 GM in DEXTROSE 5%-WATER 100 ML IV SCH (14:00)
[2020-01-26] MEDS ORDERED: GABAPENTIN 300 MG CAPSULE PO SCH (14:00)
[2020-01-26] MEDS ORDERED: KETOROLAC TROMETHAMINE INJ/PF 30 MG/1 ML SDV IV SCH (14:00)
[2020-01-26] MEDS ORDERED: CEFAZOLIN 2 GM/D5W RTU 2 GM/50 ML RTUPB IV SCH (14:00)
[2020-01-26] MEDS ORDERED: PHENYLEPHRINE HCL INJ/PF 10 MG/1 ML SDV ONE (15:14)
[2020-01-26 15:48] VITALS: BP 105/71
[2020-01-26] MEDS ORDERED: METFORMIN HCL 500 MG TABLET PO SCH (18:00)
[2020-01-26] MEDS ORDERED: METOPROLOL SUCCINATE 50 MG TAB.SR.24H PO SCH (22:00)
[2020-01-26] MEDS ORDERED: GABAPENTIN 100 MG CAPSULE PO SCH (22:00)
[2020-01-27] MEDS ORDERED: MONTELUKAST SODIUM 10 MG TABLET PO SCH (08:00)
[2020-01-27] MEDS ORDERED: CETIRIZINE 10 MG TABLET PO SCH (10:00)
[2020-01-27] MEDS ORDERED: POLYETHYLENE GLYCOL 3350 POWDER 17 GM/1 PACKET PO SCH (10:00)
[2020-01-27] MEDS ORDERED: ASPIRIN 325 MG TABLET PO SCH (10:00)
[2020-01-28] MEDS ORDERED: CELECOXIB 200 MG CAPSULE PO SCH (10:00)
== END 2020-01-26 16:09 | disposition home or self-care (01) ==
LOC: OROUT 05:41 → 4W 05:42
PROVIDERS: ADMIT Orthopaedic Surgery; ATTEND Orthopaedic Surgery
DX: M16.11 Unilateral primary osteoarthritis, right hip (principal); Z79.01 Long term (current) use of anticoagulants; Z20.828 Contact with and (suspected) exposure to other viral communicable diseases; M54.9 Dorsalgia, unspecified; Z98.1 Arthrodesis status; Z79.82 Long term (current) use of aspirin; Z79.899 Other long term (current) drug therapy; I10 Essential (primary) hypertension; Z78.0 Asymptomatic menopausal state; Z91.81 History of falling; Z87.891 Personal history of nicotine dependence
CPT/HCPCS: 27130; 86900; 86901; 36415 ×2; 86850; 82962; 85610; 85730; 73502; 73501; 97110; 97116; 97162; 97535; 97165; 01214; G0378; C1776 ×4; U0003; A9270 ×7; J2250; J0690; J3490 ×5; J0171; J1885; J2370; J2405; J7060 ×2; J2704; J3370; C9803; 87635; J3010